=== PATIENT | female | born 1955 | race Caucasian/White ===

== ENCOUNTER → 2017-05-02 | Outpatient (CLI) | payer BC ==
--- NOTE | 2017-05-02 12:06 | Diagnostic Imaging Report ---
EXAM: CT Chest WITHOUT contrast INDICATION: \[id number] \S\[id number] \S\ABN CXR W/MULTIPLE LUNG NODULES COMPARISON: Chest CT dated 01/17/2017 TECHNIQUE: Chest was scanned utilizing a multidetector helical scanner from the lung apex through the level of the adrenal glands without administration of IV contrast. Absence of intravenous contrast decreases sensitivity for detection of lymphadenopathy and vascular pathology. Coronal and sagittal reformations were obtained. Routine protocol was performed. IV CONTRAST: None COMPLICATIONS: None RADIATION DOSE: Total DLP: 244.54 mGy*cm Estimated effective dose: (DLP x 0.014 x size factor) mSv CTDIvol has been reviewed. It is below the limits set by the Radiation Protocol Committee (RPC). FINDINGS: LINES/ TUBES: None. LUNGS AND AIRWAYS: Biapical scarring. Stable 5 mm lingular nodule (series 3, image 75). Stable 4 mm posterior left lower lobe nodule (3/65). Stable 8 mm left lower lobe nodule (3/73) with central calcification. Stable 6 mm left lower lobe nodule (3/79). Airways are normal. PLEURA: The pleural spaces are clear. HEART AND MEDIASTINUM: The thyroid gland is normal. No mediastinal, hilar or axillary lymphadenopathy. Stable 1.2 cm subcarinal lymph node. The heart is normal in size.. There is no pericardial effusion. UPPER ABDOMEN: Small hiatal hernia. BONES: The visualized bony thorax is within normal limits. SOFT TISSUES: Unremarkable. IMPRESSION: Stable left lung nodules. Consider further follow-up at 12 months to ensure stability. Stable nonspecific 1.2 cm subcarinal lymph node. Small hiatal hernia. Signed by: Dr. Ed Valentin MD on 05/02/2017 12:02 PM
== END ==
LOC: CT 11:01
PROVIDERS: ATTEND Family Medicine
DX: R91.8 Other nonspecific abnormal finding of lung field (principal)
CPT/HCPCS: 71250